=== PATIENT | female | born 1980 | race Caucasian/White ===

== ENCOUNTER 2016-09-09 07:21 | Day surgery (SDC) | payer MEDICAID ==
[2016-09-09 07:35] VITALS: BMI 19.2
[2016-09-09] MEDS ORDERED: Lactated Ringer's 1,000 ML IV ONE (08:50)
[2016-09-09] MEDS ORDERED: HYDROmorphone 0.5 mg/0.5 ml ISec IVP PRN (09:01)
[2016-09-09] MEDS ORDERED: ceFAZolin IV 1 gm in Dextrose 1 GM/50 ML BAG IVPB ONE (09:03)
[2016-09-09] MEDS ORDERED: Midazolam 2 MG/2 ML VIAL ONE (09:05)
[2016-09-09] MEDS ORDERED: Propofol 10 mg/ml Inj (20 ML) ONE (09:05)
--- NOTE | 2016-09-09 09:46 | PCM.SURG1 ---
Surgeon's Initial Post Op Note - Surgeon's Notes Surgeon: dr butler Rabbit Dresser: none Type of Anesthesia: General LMA Anesthesia Administered By: dr barrow Pre-Operative Diagnosis: 36 yr menorrhagia/end polyp Operative Findings: see the op reoprt Post-Operative Diagnosis: same with end polyp Operation Performed: myasure/d &c, hystercopy Specimen/Specimens Removed: ecc. emc. polyp Estimated Blood Loss: EBL {In ML}: 20 Blood Products Given: N/A Drains Used: No Drains Post-Op Condition: Good Date of Surgery/Procedure: 09/09/16 Time of Surgery/Procedure: 10:00
[2016-09-09 09:54] VITALS: O2SAT 100
--- NOTE | 2016-09-09 10:22 | OP ---
PROCEDURE DATE: 09/09/2016 PREOPERATIVE DIAGNOSES: A 36-year-old 1, para 1 with menorrhagia, endometrial polyp. POSTOPERATIVE DIAGNOSES: A 36-year-old 1, para 1 with menorrhagia, endometrial polyp. SURGEON: Som Bustamante MD CIRCULAR SAWYER HELPER SURGEON: None. ANESTHESIA: General anesthesia. ANESTHESIOLOGIST: Dr. Espinoza. PROCEDURES PERFORMED: MyoSure, dilation and curettage, hysteroscopy. COMPLICATIONS: None. ESTIMATED BLOOD LOSS: 20 mL. PROCEDURE: After informed consent was obtained, the patient was brought to the operating room and pl aced on table where general anesthesia was given. When anesthesia was found to be adequate, she was prepped and draped in normal sterile fashion. Examination found uterus to be 6-7 weeks, no palpable adnexal masses. Anterior lip of the cervix was grasped with the tenaculum. Gentle dilation of the c ervix was done. Hysteroscope was introduced and found to be a polyp on the posterior wall of the upper [place] jacobo. Pictures were taken. Decision was made to do MyoSure. MyoSure was introduced, polyp was remov ed. After that, instrument was removed. ECC was done with sharp curettage of all the frost of the u terus and was sent to the pathology. Then the tenaculum was removed; it was not bleeding. The patie nt tolerated the procedure well. Laps, sponge, instruments correct x 2. Deficit was 107 mL. The pa tient tolerated the procedure ____. Som Bustamante MD cc: [id number] TT: 09/09/2016 10:22:15 sc
[2016-09-09 13:27] VITALS: BP 104/68; PULSE 80; RESP 20; TEMP 98
== END 2016-09-09 13:25 | disposition home or self-care (01) ==
LOC: C.SDS 07:21
PROVIDERS: ATTEND Obstetrics & Gynecology
DX: N84.0 Polyp of corpus uteri (principal); N92.0 Excessive and frequent menstruation with regular cycle
CPT/HCPCS: 58558; 88305; J1100; J2001; J2250; J2405; J2704; J3010; J7120